=== PATIENT | male | born 1985 | race Caucasian/White ===

== ENCOUNTER 2017-09-10 14:06 | Emergency (ER) | payer SELFPAY ==
[2017-09-10] MEDS ORDERED: HYDROmorphone 1 MG/ML Syringe IM ONE ×2 (14:28→15:35)
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
== END 2017-09-10 17:00 | disposition home or self-care (01) ==
LOC: JP.ED 14:06
DX: S42.034A Nondisplaced fracture of lateral end of right clavicle, initial encounter for closed fracture (principal); S12.601A Unspecified nondisplaced fracture of seventh cervical vertebra, initial encounter for closed fracture; S22.019A Unspecified fracture of first thoracic vertebra, initial encounter for closed fracture; S42.191A Fracture of other part of scapula, right shoulder, initial encounter for closed fracture; F17.210 Nicotine dependence, cigarettes, uncomplicated; V86.59XA Driver of other special all-terrain or other off-road motor vehicle injured in nontraffic accident, initial encounter
CPT/HCPCS: 71250; 72125; 96372; 99284; J1170